=== PATIENT | female | born 1995 | race Hispanic/Latino ===

== ENCOUNTER 2017-06-28 14:22 | Inpatient (IN) | payer OTHER, SELFPAY ==
[2017-06-28 19:41] LABS: Bilirubin Small (Negative); Blood, Urine Negative (Negative); Clarity TURBID (Clear); Glucose, Urine (Dipstick) Negative (Negative); Leukocyte Small (Negative); Nitrite Negative (Negative); Protein, Urine (Dipstick) 30 mg/dL (Neg-Trace); Specific Gravity, Urine 1.031 (1.002-1.036); pH, Urine 6.5 (5.0-9.0)
[2017-06-28 19:43] LABS: #Lymphocytes 2.6 thou/uL (1.20-3.40); #Monocytes 0.5 thou/uL (0.11-0.59); #Neutrophils 11.9 thou/uL (1.40-6.50); %Basophils 0.2 % (0.0-1.0); %Eosinophils 0.2 % (0.0-10.0); %Lymphocytes 17.3 % (21.0-51.0); %Monocytes 3.2 % (0.0-10.0); Bacteria/HPF 1+ HPF (None Seen); Hemoglobin 14.7 g/dL (12.0-16.0); Mean Corpuscular HGB CONC 32.7 g/dL (32.0-36.0); Mean Corpuscular Volume 88.7 fl (81.0-99.0); Mean Platelet Volume 9.5 fL (7.4-10.4); Pathc Cast-AUWi Flag 18.97 (0-2.49); Platelet Count 185 thou/uL (130-400); RBC Distribution Width 14.2 % (11.5-14.5); RBC/HPF 0-3 HPF (0-3); Red Blood Cell (RBC) Count 5.07 mill/uL (4.20-5.40); Squamous Epithelial 21-50 HPF (0-3); White Blood Cell (WBC) Count 15.1 thou/uL (4.8-10.8)
[2017-06-28 19:44] LABS: Pregnancy Test - Urine (BHCG) Negative (Negative); Pregu Control Background? CLEAR/WHITE (CLR/WHITE); Pregu Control Bar Appear? YES (CONTROL BAR); Specific Gravity 1.031 (1.002-1.036)
[2017-06-28 19:52] LABS: Hyaline Casts/LPF 0-3 HYALINE CAST LPF (0-3 Hyaline); Manual Microscopic Reviewed? No Path Casts Seen
[2017-06-28 20:01] LABS: ALT (SGPT) 10 U/L (8-55); AST (SGOT) 17 U/L (5-34); Albumin 4.4 g/dL (3.5-5.0); Alkaline Phosphatase 56 U/L (40-150); Anion Gap 15 mmol/L (10-20); BUN (Urea Nitrogen) 9 mg/dL (7.0-18.7); Bilirubin, Total 1.1 mg/dL (0.2-1.2); Calc. Creatinine Clearance 0 mL/min (70-130); Calcium 9.5 mg/dL (7.8-10.44); Carbon Dioxide 22 mmol/L (22-29); Chloride 104 mmol/L (98-107); Estimated GFR-MDRD 73; Globulin 3.8 g/dL (2.4-3.5); Glucose 85 mg/dL (70-105); Lipase 7 U/L (8-78); Potassium 3.3 mmol/L (3.5-5.1); Protein, Total 8.2 g/dL (6.0-8.3); Sodium 138 mmol/L (136-145)
[2017-06-28] MEDS ORDERED: Ondansetron ODT 4 MG TAB ONE (20:16)
[2017-06-28] MEDS ORDERED: Multivitamins, Adult 10 ML, Thiamine HCl 100 MG, Folic Acid 1 MG in Dextrose 5 %-0.45 %... IV SCH ×4 (23:30)
[2017-06-29] MEDS ORDERED: Acetaminophen 325 MG TAB PO PRN (01:15)
[2017-06-29 01:48] LABS: Acetaminophen Less than 6.0 mcg/mL (10.0-30.0); Alcohol Less than 10 mg/dL (Less than 10); Salicylate Less than 8.0 mg/dL (15.0-30.0)
[2017-06-29] MEDS ORDERED: Levothyroxine Sodium 100 MCG VIAL IVP SCH ×2 (02:30→12:00)
[2017-06-29] MEDS: Sodium Chloride 0.9% 1,000 ML IV SCH ×3 (03:00→15:02)
[2017-06-29 03:03] LABS: Amphetamine Not Detected (NotDetected); Barbiturates Screen Not Detected (NotDetected); Benzodiazepine Screen Not Detected (NotDetected); Cocaine Metabolite Screen Not Detected (NotDetected); Medtox Control Line Valid? VALID (VALID); Medtox Reader # READER 4; Methadone Not Detected (NotDetected); Methamphetamine Not Detected (NotDetected); Opiate Screen Not Detected (NotDetected); Oxycodone Screen Not Detected (NotDetected); Phencyclidine (PCP) Not Detected (NotDetected); THC/Cannabinoid Screen Not Detected (NotDetected); Tricyclic Screen Not Detected (NotDetected)
--- NOTE | 2017-06-29 05:49 | HP-2 ---
CODE STATUS: FULL. PRIMARY CARE PHYSICIAN: City call. ATTENDING: Dav Trinidad MD RESIDENT: Georgina Hernández DO HISTORIAN: Patient. CHIEF COMPLAINT: Involuntary vomiting. HISTORY OF PRESENT ILLNESS: Patient is a 21-year-old female at 4 months with a surg ical history of a gastric lap band in [place] one and a half years ago and recent history of bulimia, presents with involuntary vomiting. The patient reports she mostly induces vomiting with her fingers , but vomiting has become involuntary and reports waking up in her vomit on occasion. The patient al so reports depression since childhood, but denies suicidal ideation at this time. Patient denies any history of psychosis, auditory or visual hallucinations. The patient reports her vomiting started a s a way to combat a full stomach. After her lap band, she would eat too much and then feel sick. Sh e would induce vomiting at that time. If she reports eating is her way of coping with depression and so if she wanted to eat more than she would just eat and then induced vomiting, because she felt too full and continue with that same cycle again. The patient also reports that she has had no bowel mo vement for at least 2 weeks, maybe even longer. She reports when she does have a bowel movement, it is diarrhea. In the ER, she was found to be hypotensive and bradycardic down to the 50s. She was gi rikki 1 gram of Rocephin and banana bag, 1 liter normal saline, potassium, and Zofran. PAST MEDICAL HISTORY: 1. Asthma. 2. Anxiety. PAST SURGICAL HISTORY: 1. Blood transfusion in 02/04. 2. Lap band. 3. Tonsillectomy. ALLERGIES: ASPIRIN. MEDICATIONS: None. FAMILY HISTORY: Mom with thyroid disorder. SOCIAL HISTORY: Denies tobacco, alcohol, or drug use, although has a past cocaine and cannabis use p er chart review. REVIEW OF SYSTEMS: General: Denies fever. Does report hair loss. Eyes: No vision changes. ENT: No nasal congestion or rhinorrhea. Does report mild trouble swallowing, but reports it is more rela elan to keeping food and liquid down. Respiratory: Denies cough, congestion, or shortness of breath. Cardiovascular: Denies chest pain or palpitations. Gastrointestinal: Reports vomiting and diarrh ea 2 weeks ago. Denies abdominal pain. Genitourinary: Denies dysuria or polyuria. Skin: No rashe s or lesions. Musculoskeletal: Denies pain. Neurologic: Denies weakness, numbness, or syncope. P sychiatric: Denies anxiety. Reports anxiety and depression. PHYSICAL EXAMINATION: VITAL SIGNS: Blood pressure 97/54, pulse 59, respiratory rate 18, T-max 97.7, pulse ox 94% on room a ir. Current weight 77.1 kilograms. GENERAL: The patient is alert and oriented x4, in no acute distress. She is obese and slowly answer ing questions. EYES: EOMI. ENT: Oropharynx within normal limits. Poor dentition. Enlarged parotid glands. NECK: Supple, without lymphadenopathy and no thyromegaly. CARDIOVASCULAR: No bradycardic. No murmurs. Radial pulses 2+. RESPIRATORY: Normal effort, no retractions. Clear to auscultation bilaterally. SKIN: Warm and dry. Does have some abrasions in the left metacarpophalangeal joint on digits 1 and 2. ABDOMEN: Soft, nontender with hypoactive bowel sounds. EXTREMITIES: No clubbing, cyanosis, or edema. MUSCULOSKELETAL: Structure within normal limits. Tone within normal limits. NEUROLOGIC: No focal deficits. PSYCHIATRIC: Patient's affect is not congruent with stated mood. Does not appear depressed. In fac t, smiles when talking about how she makes herself throw up. LABORATORY AND DIAGNOSTIC DATA: 1. CBC, white blood cell count 15.1, hemoglobin 14.7, hematocrit 45, platelets 185. 2. Chemistries, sodium 138, potassium 3.3, chloride 104, bicarbonate 22, BUN 9, creatinine 0.96, glu cose 85, GFR 73, calcium 9.5, total protein 8.2, albumin 4.4, AST 17, ALT 10, alkaline phosphatase 56 , total bilirubin 1.1, lipase 7. 3. Flu negative. Beta hCG negative. 4. TSH 187.65. 5. UA is contaminated with 21-50 squamous cells, but did show trace ketones, small leukocyte esteras e, 30 protein, and greater than 50 white blood cells with 1+ bacteria. 6. UDS pending. 7. Serum drug screen negative. 8. EKG sinus bradycardia with a rate of 63. ASSESSMENT AND PLAN: 1. Asymptomatic hypertension. Place patient on telemetry observation. Differential diagnosis will include hypothyroidism versus volume depletion secondary to bulimia. We will continue IV fluids and start Synthroid. I spoke with the patient about the importance of developing relationship with a PCP to follow up with her bulimia and her hypothyroidism. Not likely, the hypotension was related to in fection as there is no source, although white blood cell count is elevated. We will continue to tren d and monitor. 2. Bradycardia, possibly secondary to hypothyroidism. The rate has been in the 50s to 60s. Again, patient is asymptomatic at this time. We will continue to monitor. 3. Hypokalemia. We will replace and recheck. 4. Hypothyroidism. Patient was given IV Synthroid with concern for developing myxedema, we will rul e out adrenal insufficiency with an a.m. cortisol. We will also get T4 and T3. 5. Depression. Patient not on any medication. We will likely need oral meds and outpatient treatme nt. The patient reports she had been to counseling when she was young and it did help, would benefit from counseling now. 6. Depression, may improve with the treatment of her hypothyroidism. 7. Bulimia. The patient reports she wants to get help. We will advise for outpatient treatment and consider psych consult, although at this time, not suicidal. 8. Constipation, likely secondary to hypothyroidism. The patient reports the last bowel movement 2 weeks ago. We will give Colace b.i.d. 9. Deep venous thrombosis prophylaxis, sequential compression devices. DISPOSITION AND LENGTH OF HOSPITAL STAY: 1-2 days. Symptomatic medications will be provided. History and physical exam as well as management were discussed with Dr. Dav Trinidad.
[2017-06-29 06:06] LABS: T4 Less than 2.0 ug/dL (4.87-11.72)
[2017-06-29 07:05] LABS: Anion Gap 9 mmol/L (10-20); BUN (Urea Nitrogen) 7 mg/dL (7.0-18.7); Calc. Creatinine Clearance 134 mL/min (70-130); Calcium 8.4 mg/dL (7.8-10.44); Carbon Dioxide 23 mmol/L (22-29); Chloride 110 mmol/L (98-107); Estimated GFR-MDRD 88; Glucose 63 mg/dL (70-105); Magnesium 2.1 mg/dL (1.6-2.6); Phosphorus 2.9 mg/dL (2.3-4.7); Potassium 3.1 mmol/L (3.5-5.1); Sodium 139 mmol/L (136-145)
[2017-06-29] MEDS: Docusate 100 MG CAP PO SCH ×2 (08:12→20:54)
[2017-06-29] MEDS ORDERED: Potassium Chloride 40 MEQ in Sodium Chloride 0.9% 500 ML IVPB SCH (12:15)
--- NOTE | 2017-06-29 12:35 | HP ---
I have reviewed the history and physical of Dr. Georgina Hernández and discussed the case with her. I agree with her assessment and plan. HISTORY OF PRESENT ILLNESS: Briefly, Ms. Mejia is a very pleasant 21-year-old female who p resented to our emergency room with a great deal of retching and vomiting. She was noted at that renzo e to be hypotensive and bradycardic. A TSH drawn showed a level of 187. She was admitted with possi ble myxedema. PHYSICAL EXAMINATION: GENERAL: This morning she is completely awake, alert, pleasant, smiling and in no distress. VITAL SIGNS: Her blood pressure has come up slightly to 97/60. Her pulse rate is in the low 50s, he r respiratory rate is 18, and she is afebrile. Her room air pulse ox is 94%. She is alert, oriented , in no distress. ENT: Normal. Her thyroid is unremarkable. It is not enlarged and there are no nodules. CARDIAC: Heart rhythm is regular, without gallop or murmur noted. LUNGS: Her lungs are clear to auscultation without rales, rhonchi or wheezes. ABDOMEN: Her abdomen is flat and soft. NEURO: Neurologically, she demonstrates no focal deficits. LABORATORY DATA: CBC: White count is 15,100, hemoglobin 14.7, hematocrit 45 with an MCV of 88.7. S he has a slight left shift. Chemistries: Sodium is 138, potassium 3.3, chloride 104, bicarbonate 22 , BUN 9, creatinine 0.96. Her liver function studies are normal. Her globulin level was slightly el evated at 3.8. Her TSH is 187.65. Her free T4 is less than 0.4 with the lower limit of 0.7. ASSESSMENT: Possible myxedema with bradycardia and hypotension. She has already been given fluids a nd is well hydrated. We will begin treatment with some intravenous levothyroxine and monitor her natan e T4 every 2-3 days. We will monitor TSH weekly. We will give 1 dose of Solu-Medrol to cover for po ssible relative adrenal insufficiency. In the event clinically other than her low blood pressure she appears to be quite stable.
[2017-06-29] MEDS ORDERED: methylPREDNISolone Sod Succ/PF 125 MG/2 ML VIAL IVP SCH (13:30)
[2017-06-29] MEDS ORDERED: Pantoprazole 40 MG VIAL IVP SCH (13:45)
[2017-06-30] MEDS: Sodium Chloride 0.9% 1,000 ML IV SCH ×3 (00:10→08:36)
[2017-06-30] MEDS: Levothyroxine Sodium 100 MCG VIAL IVP SCH (05:56)
[2017-06-30] MEDS: Sodium Chloride 0.9% 10 ML ONE (05:57)
[2017-06-30 06:03] LABS: #Lymphocytes 1.9 thou/uL (1.20-3.40); #Monocytes 0.1 thou/uL (0.11-0.59); #Neutrophils 3.7 thou/uL (1.40-6.50); %Basophils 0.5 % (0.0-1.0); %Eosinophils 0.2 % (0.0-10.0); %Lymphocytes 33.3 % (21.0-51.0); %Monocytes 1.8 % (0.0-10.0); %Neutrophils 64.2 % (42.0-75.0); Hemoglobin 12.8 g/dL (12.0-16.0); Mean Corpuscular HGB CONC 32.2 g/dL (32.0-36.0); Mean Corpuscular Volume 90.2 fl (81.0-99.0); Mean Platelet Volume 9.7 fL (7.4-10.4); Platelet Count 153 thou/uL (130-400); RBC Distribution Width 14.4 % (11.5-14.5); Red Blood Cell (RBC) Count 4.42 mill/uL (4.20-5.40); White Blood Cell (WBC) Count 5.8 thou/uL (4.8-10.8)
[2017-06-30 06:23] LABS: Anion Gap 9 mmol/L (10-20); BUN (Urea Nitrogen) 5 mg/dL (7.0-18.7); Calc. Creatinine Clearance 145 mL/min (70-130); Calcium 8.7 mg/dL (7.8-10.44); Carbon Dioxide 20 mmol/L (22-29); Chloride 110 mmol/L (98-107); Estimated GFR-MDRD Greater than 90; Glucose 97 mg/dL (70-105); Potassium 4.1 mmol/L (3.5-5.1); Sodium 135 mmol/L (136-145)
--- NOTE | 2017-06-30 09:15 | PDOC.FM ---
- Subjective Subjective: Patient doing well this morning. She is tolerating small amount of liquids without any episodes of vomiting or inducing vomiting. She denies pain, SOB. - Objective MAR Reviewed: Yes Vital Signs & Weight: Vital Signs (12 hours) Temp Pulse Resp BP BP Pulse Ox 06/30/17 07:20 97.4 F L 48 L 16 06/30/17 07:13 97.2 F L 40 L 16 118/77 99 06/30/17 04:15 97.4 F L 48 L 16 91/63 96 06/30/17 00:10 46 L 16 95/56 L Weight Admit Weight 77.973 kg Weight 79.379 kg I&O: 06/29/17 06/30/17 07/01/17 06:59 06:59 06:59 Intake Total 514 4113 292 Output Total 800 Balance 514 3313 292 Result Diagrams: 06/30/17 05:48 06/30/17 05:48 Phys Exam - Physical Examination Constitutional: NAD Respiratory: no wheezing, no rales, no rhonchi, clear to auscultation bilateral Cardiovascular: RRR, no significant murmur Gastrointestinal: soft, non-tender, no distention, positive bowel sounds Musculoskeletal: no edema Neurological: non-focal, normal sensation, moves all 4 limbs Psychiatric: normal affect, A&O x 3 Dx/Plan (1) Shira's thyroiditis Code(s): E06.3 - AUTOIMMUNE THYROIDITIS Status: Acute Plan: TSH 118 low T4 TPO AB elevated. s/p 300 MCG loading dose synthroid. cont daily 100 mcg IV synthroid and recheck T4 in AM. (2) Bulimia nervosa Code(s): F50.2 - BULIMIA NERVOSA Status: Chronic Plan: Patient improving. She will benefit from cognitive behavioral therapy however funding maybe an issue. Will consult case mgmt to determine insurance eligibility. (3) Bradycardia with 41-50 beats per minute Code(s): R00.1 - BRADYCARDIA, UNSPECIFIED Status: Acute Plan: likely 2/2 to profound hypothyroidism.
[2017-06-30] MEDS: Pantoprazole 40 MG VIAL IVP SCH (09:39)
[2017-06-30] MEDS: Docusate 100 MG CAP PO SCH ×2 (09:39→21:14)
--- NOTE | 2017-06-30 12:39 | ADD-PRG ---
DATE OF SERVICE: 06/30/2017 This is an addendum to the note of Dr. Zandra Webb. Ms. Mejia is awake and alert this morning. She is pleasant and cooperative and in no distress. We are continuing her intravenous levothyroxine daily after giving her a booster yesterday. She also received a dose of Solu-Medrol, which seemed to at least temporarily raise her blood pressure. In the event, clinically she remained stable except for a slightly low blood pressure and low pulse rate. She seems to be perfusing well. Not surprisingly, her thyroid peroxidase antibody is greatly elevated at 1177. We will continue with IV levothyroxine. Perhaps it would be a good idea to one more dose of Solu-Medrol and note the response. Clinically, she is remaining stable and can likely be discharged tomorrow with close followup as she will need to continually check free T4s and TSHs more frequently at least initially. We had a long talk with her also about the importance of continuing to take her thyroid medication likely indefinitely. PAOLO
[2017-06-30 13:26] VITALS: BMI 33.0
[2017-06-30 15:19] LABS: Folate,Hemolysate 457.6 ng/mL (Not Estab.); Hematocrit 37.7 % (34.0-46.6); RBC Folate Test Component 1214 ng/mL (>498)
[2017-07-01] MEDS: Levothyroxine Sodium 100 MCG VIAL IVP SCH (05:46)
[2017-07-01 06:49] LABS: Anion Gap 10 mmol/L (10-20); BUN (Urea Nitrogen) 9 mg/dL (7.0-18.7); Calc. Creatinine Clearance 142 mL/min (70-130); Calcium 8.8 mg/dL (7.8-10.44); Carbon Dioxide 23 mmol/L (22-29); Chloride 108 mmol/L (98-107); Estimated GFR-MDRD 88; Glucose 71 mg/dL (70-105); Potassium 3.7 mmol/L (3.5-5.1); Sodium 137 mmol/L (136-145)
[2017-07-01] MEDS: Pantoprazole 40 MG VIAL IVP SCH (08:56)
[2017-07-01] MEDS: Docusate 100 MG CAP PO SCH ×2 (08:56→20:14)
[2017-07-01] MEDS: Ondansetron ODT 4 MG TAB PO PRN ×2 (11:34→20:09)
[2017-07-01] MEDS ORDERED: Cosyntropin 250 MCG VIAL SLOW IVP SCH (12:00)
--- NOTE | 2017-07-01 12:12 | PDOC.FM ---
- Subjective Subjective: Patient doing well. She is tolerating small amount of food and attempting advancing diet. - Objective MAR Reviewed: Yes Vital Signs & Weight: Vital Signs (12 hours) Temp Pulse Resp BP Pulse Ox 07/01/17 08:00 97.6 F 44 L 16 07/01/17 07:30 97.4 F L 42 L 16 98/66 98 07/01/17 04:23 97.6 F 44 L 16 92/54 L 97 07/01/17 00:25 97.6 F 50 L 16 103/67 97 Weight Admit Weight 77.973 kg Weight 83.007 kg I&O: 06/30/17 07/01/17 07/02/17 06:59 06:59 06:59 Intake Total 4113 937 Output Total 800 750 Balance 3313 187 Result Diagrams: 06/30/17 05:48 07/01/17 05:01 <Zandra Webb - Last Filed: 07/01/17 12:09> - Objective Vital Signs & Weight: Vital Signs (12 hours) Temp Pulse Resp BP Pulse Ox 07/01/17 15:44 98.0 F 60 16 114/74 100 07/01/17 11:45 97.5 F L 48 L 16 101/66 98 07/01/17 08:00 97.6 F 44 L 16 07/01/17 07:30 97.4 F L 42 L 16 98/66 98 Weight Admit Weight 77.973 kg Weight 83.007 kg I&O: 06/30/17 07/01/17 07/02/17 06:59 06:59 06:59 Intake Total 4113 937 Output Total 800 750 Balance 3313 187 Result Diagrams: 06/30/17 05:48 07/01/17 05:01 <Alise Huynh - Last Filed: 07/01/17 16:58> Phys Exam - Physical Examination Constitutional: NAD Respiratory: no wheezing, no rales, no rhonchi, clear to auscultation bilateral Cardiovascular: RRR, no significant murmur Gastrointestinal: soft, non-tender, no distention Musculoskeletal: no edema Neurological: non-focal, normal sensation, moves all 4 limbs Psychiatric: normal affect, A&O x 3 <Zandra Webb - Last Filed: 01/06/18 12:09> Dx/Plan (1) Shira's thyroiditis Code(s): E06.3 - AUTOIMMUNE THYROIDITIS Status: Acute Plan: TSH 118 low T4 TPO AB elevated. s/p 300 MCG loading dose synthroid. cont daily 100 mcg IV synthroid. T4 improved on day 3 of treatment. Will switch to PO thyroid tm and see if pt tolerates the medicine. (2) Low serum adrenocorticotrophic hormone (ACTH) Code(s): R79.89 - OTHER SPECIFIED ABNORMAL FINDINGS OF BLOOD CHEMISTRY Status : Acute Plan: will perform ACTH stimulation test this afternoon, suspect secondary adrenal insufficiency (low ACTH and low AM cortisol) (3) Bulimia nervosa Code(s): F50.2 - BULIMIA NERVOSA Status: Chronic Plan: Patient improving. She will benefit from cognitive behavioral therapy however funding maybe an issue. Will consult case mgmt to determine insurance eligibility. (4) Bradycardia with 41-50 beats per minute Code(s): R00.1 - BRADYCARDIA, UNSPECIFIED Status: Acute Plan: likely 2/2 to profound hypothyroidism. <Zandra Webb - Last Filed: 07/01/17 12:09> Attending Addendum - Attending Addendum I personally evaluated the patient and discussed the management with Dr. Webb. I agree with the History, Examination, Assessment and Plan documented above with any addition or exceptions noted below. The patient had an additional episode of vomiting this morning. Concerned for adrenal insufficiency and will get additional testing. <Alise Huynh - Last Filed: 07/01/17 16:58>
[2017-07-01] MEDS: Sodium Chloride 0.9% 10 ML ONE (20:09)
[2017-07-02 05:36] LABS: Anion Gap 11 mmol/L (10-20); BUN (Urea Nitrogen) 9 mg/dL (7.0-18.7); Calc. Creatinine Clearance 147 mL/min (70-130); Calcium 9.2 mg/dL (7.8-10.44); Carbon Dioxide 25 mmol/L (22-29); Chloride 106 mmol/L (98-107); Estimated GFR-MDRD Greater than 90; Glucose 69 mg/dL (70-105); Potassium 3.5 mmol/L (3.5-5.1); Sodium 138 mmol/L (136-145)
[2017-07-02] MEDS ORDERED: Levothyroxine Sodium 125 MCG TAB PO SCH (06:00)
[2017-07-02] MEDS ORDERED: Hydrocortisone 10 mg Tablet PO SCH (06:00)
[2017-07-02] MEDS: Ondansetron ODT 4 MG TAB PO PRN ×2 (06:22→12:33)
--- NOTE | 2017-07-02 07:57 | PDOC.FM ---
- Subjective Subjective: Patient feeling well this morning. She is attempting to take oral meds this AM. She reports some acid reflux. She reports eating a little more food yesterday than has previously tolerated, and this went well when she took zofran first. She has an eligibility meeting with [employer] in 2 days to establish care. - Objective MAR Reviewed: Yes Vital Signs & Weight: Vital Signs (12 hours) Temp Pulse Resp BP Pulse Ox 07/02/17 03:50 98 F 46 L 20 99/56 L 93 L 07/01/17 23:30 95/57 L 07/01/17 23:13 97.7 F 45 L 18 96 07/01/17 20:00 97.4 F L 59 L 16 Weight Admit Weight 77.973 kg Weight 79.424 kg I&O: 07/01/17 07/02/17 07/03/17 06:59 06:59 06:59 Intake Total 937 200 Output Total 750 520 Balance 187 -320 Result Diagrams: 06/30/17 05:48 07/02/17 04:14 Additional Labs: cortisol stimulation test (ACTH stim) baseline 4.8 30 min after- 14.0 60 min after- 17.4 90 min after- 18.8 Laboratory Tests 06/29/17 06/29/17 07/01/17 06:27 12:11 05:01 Free T4 0.54 L Cortisol 4.70 ACTH 5.0 L <Zandra Webb - Last Filed: 07/02/17 08:54> - Objective Vital Signs & Weight: Vital Signs (12 hours) Temp Pulse Resp BP Pulse Ox 07/02/17 11:12 97.3 F L 49 L 16 100/57 L 96 07/02/17 08:00 97.5 F L 51 L 16 07/02/17 07:15 97.5 F L 51 L 16 96/68 96 Weight Admit Weight 77.973 kg Weight 79.424 kg I&O: 07/01/17 07/02/17 07/03/17 06:59 06:59 06:59 Intake Total 937 200 Output Total 750 520 Balance 187 -320 Result Diagrams: 06/30/17 05:48 07/02/17 04:14 <Alise Huynh - Last Filed: 07/02/17 17:06> Phys Exam - Physical Examination Constitutional: NAD HEENT: PERRLA Respiratory: no wheezing, no rales, no rhonchi, clear to auscultation bilateral Cardiovascular: RRR, no significant murmur Gastrointestinal: soft, non-tender Musculoskeletal: no edema Neurological: non-focal, normal sensation, moves all 4 limbs <Zandra Webb - Last Filed: 07/02/17 08:54> Dx/Plan (1) Shira's thyroiditis Code(s): E06.3 - AUTOIMMUNE THYROIDITIS Status: Acute Plan: TSH 118 low T4-> now improved on day 3 treatment. TPO AB elevated indicative of hashimotos s/p 300 MCG loading dose synthroid. has been on daily 100 mcg IV synthroid and transitioned today to 125 mcg PO (2) Low serum adrenocorticotrophic hormone (ACTH) Code(s): R79.89 - OTHER SPECIFIED ABNORMAL FINDINGS OF BLOOD CHEMISTRY Status : Acute Plan: (low ACTH and low AM cortisol) ACTH stim test indicative of secondary adrenal insufficiency start hydrocortisone this AM and will plan to go home on prednisone. Stressed the absolute importance of not discontinuing this medication and she MUST follow up with a doctor to cont administration with a taper. (3) Bulimia nervosa Code(s): F50.2 - BULIMIA NERVOSA Status: Chronic Plan: Patient improving. She will benefit from cognitive behavioral therapy however funding maybe an issue. Will consult case mgmt to determine insurance eligibility. (4) Bradycardia with 41-50 beats per minute Code(s): R00.1 - BRADYCARDIA, UNSPECIFIED Status: Acute Plan: likely 2/2 to profound hypothyroidism. <Zandra Webb - Last Filed: 07/02/17 08:54> Attending Addendum - Attending Addendum I personally evaluated the patient and discussed the management with Dr. Webb. I agree with the History, Examination, Assessment and Plan documented above with any addition or exceptions noted below. Pt with adrenal insufficiency per ACTH test. STarting steroids. Pt has appt in 2 days to look at eligibility for [facility]. Discussed importance of follow-up with a physician to continue medications. She voiced understanding. <Alise Huynh - Last Filed: 07/02/17 17:06>
[2017-07-02] MEDS: Docusate 100 MG CAP PO SCH (09:20)
[2017-07-02] MEDS ORDERED: predniSONE 5 MG TAB PO SCH ×2 (11:45→12:15)
[2017-07-02 11:53] VITALS: BP 100/57; TEMP 97.3
--- NOTE | 2017-07-03 02:48 | DIS-2 ---
DATE OF ADMISSION: 06/29/2017 DATE OF DISCHARGE: 07/02/2017 ADMITTING ATTENDING: Dr. Trinidad. DISCHARGE ATTENDING: Dr. Alise Huynh. RESIDENT: Dr. Zandra Webb. PRIMARY DIAGNOSES: 1. Shira's thyroiditis. 2. Secondary adrenal insufficiency secondary to #1. 3. Bulimia nervosa. 4. Bradycardia. 5. Hypotension, resolved. DISCHARGE MEDICATIONS: 1. Levothyroxine 125 mcg p.o. daily. 2. Zofran 4 mg p.o. q.6 hours p.r.n. 3. Protonix 40 mg p.o. daily. 4. Prednisone 5 mg p.o. q.a.m. for 7 days. PERTINENT LABORATORY FINDINGS: Initial free T4 was less than 0.40, and on 07/01/2017 was 0.54. ACTH at admission was 5. An ACTH stimulation test was at baseline, cortisol 4.8 and 30 minutes post ACTH administration was 14, 60 minute post-ACTH administration was 17.4, and 90 minutes post-acth adminis tration was 18.8. Admitting TSH was 187. A thyroid peroxidase antibody was 1177. HISTORY OF PRESENT ILLNESS/HOSPITAL COURSE: This is a 21-year-old female who initially presented to the ER to receive help with her bulimia nervosa. Patient states that she used to induce vomiting, bu t for the last 4 months began to have involuntary vomiting. Upon admission; however, patient was fou nd to have a severely low blood pressure as low at 81/58 at admission. Patient was started on aggres sive fluid resuscitation and blood pressure did improve; however, rarely increased above 110 systolic during her hospitalization. Patient was found to be bradycardic throughout most of her hospitalizat ion. Patient was found to have a TSH of 118 and TPO antibody elevated, indicative of Shira's thy roiditis. Patient received a loading dose of Synthroid 300 mcg. She was then continued on 100 mcg I V daily, Synthroid. On day of discharge, she was started on oral Synthroid and her T4 had improved t o 0.54. Patient has been instructed to continue this medication and prescriptions had been sent. Sh josé miguel is to follow up with [facility] in 2 days and would recommend a repeat T4 level. Within the next week, would recommend a repeat of her TSH. I have explained the possible need for change in patient' s thyroid medication extensively to the patient. Upon admission, it was thought that the patient may have some adrenal insufficiency with her hypotens ion presentation. She did have a cortisol that was low normal. An ACTH was checked which was low. An ACTH stimulation test was performed that did show evidence for secondary adrenal insufficiency and patient was given 125 Solu-Medrol originally. On day of admission and then was continued on prednis one daily for the next week as it was thought that this was likely an ACTH suppression secondary to h er profound hypothyroidism. It is expected that secondary adrenal insufficiency will resolve once th yroid increases interbody. Patient has been instructed extensively on her prednisone use. Patient d id demonstrate to have asymptomatic bradycardia as well as asymptomatic low blood pressure throughout the 4 days of her hospitalization. In regards to patient's bulimia nervosa, she was very, very self-motivated to no longer induce vomiti ng. She did take small meals throughout her hospital stay and without vomiting. Patient was to foll ow up with [facility] in the outpatient setting to obtain counseling on her bulimia nervosa. DISPOSITION: Stable. DISCHARGE INSTRUCTIONS: 1. Location: Home. 2. Activity: As tolerated. 3. Follow up with [facility] in 2 days. DIET: Regular.
[2017-07-03] MEDS ORDERED: predniSONE 5 MG TAB PO SCH (08:00)
== END 2017-07-02 17:07 | disposition home or self-care (01) | DRG 644 ==
LOC: ERS 14:22 → OBSVTOIN 06-29 01:00 → ERHOLD 06-29 01:00 → 2SW 06-29 02:30
PROVIDERS: ADMIT Family Medicine; ATTEND Family Medicine
DX: E06.3 Autoimmune thyroiditis (principal); F50.2 Bulimia nervosa; I95.9 Hypotension, unspecified; E27.49 Other adrenocortical insufficiency; Z98.84 Bariatric surgery status; F32.9 Major depressive disorder, single episode, unspecified; R00.1 Bradycardia, unspecified; J45.909 Unspecified asthma, uncomplicated; F41.9 Anxiety disorder, unspecified; Z88.6 Allergy status to analgesic agent; I10 Essential (primary) hypertension; E87.6 Hypokalemia; K59.00 Constipation, unspecified; E66.9 Obesity, unspecified; Z68.33 Body mass index [BMI] 33.0-33.9, adult
CPT/HCPCS: 36415; 80048; 80053; 80306; 80307; 80400; 81003; 81015; 81025; 82024; 82533; 82747; 83690; 83735; 84100; 84425; 84436; 84439; 84443; 84479; 84480; 85014; 85025; 86376; 93005; 96361; 96365; 96366; 96375; A4216; C9113; J0696; J0834; J2930; J3411; J3480; J7042; J7050; Q0162

== ENCOUNTER 2020-04-13 20:11 | Emergency (ER) | payer BC, OTHER ==
[2020-04-13 21:59] LABS: #Basophils 0.1 thou/uL (0.0-0.2); #Eosinphils 0.2 thou/uL (0.0-0.7); #Lymphocytes 3.9 thou/uL (1.20-3.40); #Monocytes 0.6 thou/uL (0.11-0.59); #Neutrophils 5.1 thou/uL (1.40-6.50); %Basophils 1.4 % (0.0-1.0); %Eosinophils 1.8 % (0.0-10.0); %Lymphocytes 39.6 % (21.0-51.0); %Monocytes 5.8 % (0.0-10.0); %Neutrophils 51.5 % (42.0-75.0); Hemoglobin 11.5 g/dL (12.0-16.0); Mean Corpuscular HGB CONC 32.9 g/dL (32.0-36.0); Mean Corpuscular Hemoglobin 26.8 pg (27.0-31.0); Mean Corpuscular Volume 81.5 fL (78.0-98.0); Mean Platelet Volume 8.7 fL (7.4-10.4); Platelet Count 295 thou/uL (130-400); RBC Distribution Width 13.3 % (11.5-14.5); Red Blood Cell (RBC) Count 4.31 mill/uL (4.20-5.40); White Blood Cell (WBC) Count 9.9 thou/uL (4.8-10.8)
[2020-04-13 22:24] LABS: ALT (SGPT) 20 U/L (8-55); AST (SGOT) 16 U/L (5-34); Albumin 3.9 g/dL (3.5-5.0); Alkaline Phosphatase 60 U/L (40-110); Anion Gap 13 mmol/L (10-20); BUN (Urea Nitrogen) 11 mg/dL (7.0-18.7); Bilirubin, Total 0.4 mg/dL (0.2-1.2); Calc. Creatinine Clearance 0 mL/min (70-130); Calcium 9.3 mg/dL (7.8-10.44); Carbon Dioxide 24 mmol/L (22-29); Chloride 105 mmol/L (98-107); Estimated GFR-MDRD Greater than 90; Globulin 4.1 g/dL (2.4-3.5); Glucose 90 mg/dL (70-105); Potassium 3.6 mmol/L (3.5-5.1); Sodium 138 mmol/L (136-145)
[2020-04-13 22:46] LABS: Bacteria/HPF None Seen HPF (None Seen); Bilirubin Negative (Negative); Blood, Urine 3+ (Negative); Clarity Clear (Clear); Glucose, Urine (Dipstick) Normal (Negative); Ketone, Urine Trace mg/dL (Negative); Leukocyte Negative Leu/uL (Negative); Mucous/LPF 2+ LPF (<2+); Nitrite Negative (Negative); Protein, Urine (Dipstick) 20 mg/dL (Neg-Trace); RBC/HPF 0-3 HPF (0-3); Specific Gravity, Urine 1.034 (1.002-1.036); Squamous Epithelial 0-3 HPF (0-3); Urobilinogen Normal mg/dL (Less than 2); WBC/HPF 0-3 HPF (0-3); pH, Urine 5.5 (5.0-9.0)
[2020-04-13 22:47] LABS: Pregnancy Test - Urine (BHCG) Negative (Negative); Pregu Control Background? CLEAR/WHITE (CLR/WHITE); Pregu Control Bar Appear? YES (CONTROL BAR); Specific Gravity 1.034 (1.002-1.036)
[2020-04-13 22:53] LABS: BHCG - Serum Negative (NEGATIVE); Pregs Control Background? CLEAR/WHITE (CLR/WHITE); Pregs Control Bar Appear? YES (CONTROL BAR)
--- NOTE | 2020-04-13 23:05 | RAD ---
Chest AP view INDICATION: History of lightheadedness and dizziness COMPARISON: Prior chest 2 views dated July 27, 2006 FINDINGS: Lungs: The lungs are clear Cardiac silhouette: The cardiomediastinal silhouette appears within normal limits. Pulmonary vasculature: Normal Pleural spaces: No pleural effusion or pneumothorax is demonstrated. Upper abdomen: No abnormality seen. Osseous structures: No acute osseous abnormality. Additional findings: None. IMPRESSION: No acute cardiopulmonary abnormality.
== END 2020-04-14 00:40 | disposition home or self-care (01) ==
LOC: ERS 20:11
DX: N92.0 Excessive and frequent menstruation with regular cycle (principal); E03.9 Hypothyroidism, unspecified; J45.909 Unspecified asthma, uncomplicated; Z79.899 Other long term (current) drug therapy
CPT/HCPCS: 36415; 71045; 80053; 81003; 81015; 81025; 84443; 84484; 84703; 85025; 93005